=== PATIENT | male | born 1945 | race Hispanic/Latino ===

== ENCOUNTER 2018-09-23 09:37 | Day surgery (SDC) | payer OTHER ==
[~2018-09-23] VITALS: Ht 170.2 cm; Wt 95.3 kg
[~2018-09-23 09:37] MED LIST: AMLO5TAB9 PO; CHOL100040 PO; CYAN100T3 PO; FINA5TAB41 PO; FOLI1TAB15 PO; GLUC1TAB61 PO; LEVO25TA54 PO; MONT10TA24 PO; POTA20TA82 PO; RANI150C4 PO; SODIUM BICARB PO; SODIUM CHLORIDE 0.9% 1000ML 1,000 ML IV ONE; TAMS-1 PO
[2018-09-23 11:42] LABS: BASOPHILS % (AUTO) 1.6 % (0.0-5.0); EOSINOPHILS % (AUTO) 6.3 % (0.0-8.0); HEMATOCRIT 41.2 % (42-54); MEAN CORPUSCULAR HEMOGLOBIN 30.3 pg (27.0-33.0); MEAN CORPUSCULAR HGB CONC 33.4 g/dL (32.0-36.0); MEAN CORPUSCULAR VOLUME 90.7 fL (79-99); MONOCYTES % (AUTO) 54.2 % (3.0-13.0); NEUTROPHILS % (AUTO) 17.9 % (40.0-77.0); NUCLEATED RED BLOOD CELLS 0.1 % (0.0-0.19); PLATELET COUNT (AUTO) 88 K/uL (130-400); RED BLOOD CELL COUNT(AUTO) 4.55 MIL/uL (4.50-6.20); RED CELL DISTRIBUTION WIDTH 14.2 % (11.0-15.5); WHITE BLOOD COUNT (AUTO) 2.9 K/uL (4.8-10.8)
[2018-09-23 11:52] VITALS: BP 152/66
[2018-09-23] MEDS ORDERED: PROPOFOL 10 MG/ML 20ML VIAL IV ONE ×2 (12:19)
[2018-09-23 12:42] LABS: BAND NEUTROPHILS % (MANUAL) 3 % (0-2); BASOPHILS % (MANUAL) 1 % (0-2); EOSINOPHILS % (MANUAL) 8 % (1-6); LYMPHOCYTES % (MANUAL) 29 % (22-44); MAN.DIFF COMMENT-IMPRESSION MANUAL DIFFERENTIAL; METAMYELOCYTES % 5 % (0-0); MONOCYTES % (MANUAL) 34 % (2-9); MYELOCYTES % 4 % (0-0); PLATELET MORPHOLOGY COMMENT DECREASED; PROMYELOCYTES % 1 (0-0); SEGMENTED NEUTROPHILS % 15 % (40-70)
[2018-09-23 12:53] VITALS: BP 80/36
[2018-09-23 12:58] VITALS: BP 91/43
[2018-09-23 13:04] VITALS: BP 116/59
== END 2018-09-23 13:25 | disposition home or self-care (01) ==
LOC: DAH 09:37 → ENDO 09:37
PROVIDERS: ATTEND Internal Medicine
DX: D12.3 Benign neoplasm of transverse colon (principal); K64.0 First degree hemorrhoids; K29.50 Unspecified chronic gastritis without bleeding; Q39.9 Congenital malformation of esophagus, unspecified; K31.89 Other diseases of stomach and duodenum; K22.8 Other specified diseases of esophagus; R13.10 Dysphagia, unspecified; E03.9 Hypothyroidism, unspecified; K59.01 Slow transit constipation; R13.0 Aphagia; K62.5 Hemorrhage of anus and rectum; K57.30 Diverticulosis of large intestine without perforation or abscess without bleeding; I10 Essential (primary) hypertension; J45.909 Unspecified asthma, uncomplicated; C90.00 Multiple myeloma not having achieved remission; Z86.010 Personal history of colon polyps; Z87.442 Personal history of urinary calculi; Z79.899 Other long term (current) drug therapy; Z68.32 Body mass index [BMI] 32.0-32.9, adult
CPT/HCPCS: 36415; 43239; 43249; 45380; 85025; A4606; J2704 ×2; J7030